=== PATIENT | female | born 1990 | race Two or more races ===

== ENCOUNTER 2024-06-02 18:22 | Emergency (ER) | payer OTHER ==
[2024-06-02 18:32] VITALS: TEMP 99.2; BMI 25.8
[2024-06-02] MEDS ORDERED: KETOROLAC TROMETHAMINE 30 MG/1 ML VIAL ONE (19:33)
[2024-06-02] MEDS ORDERED: DEXAMETHASONE SOD PHOSPHATE 10 MG/1 ML VIAL ONE (19:33)
[2024-06-02 19:36] LABS: HEMATOCRIT 42.3 % (32.4-45.2); MCH 27.6 pg (25.7-33.7); MCHC 33.1 g/dl (32.0-36.0); MEAN CELL VOLUME 83.3 fl (80-96); MEAN PLT VOLUME 8.6 fl (7.5-11.1); PLATELET COUNT 246 10^3/uL (134-434); RBC 5.08 M/mm3 (3.60-5.2); RDW 14.4 % (11.6-15.6); WHITE BLOOD COUNT 20.6 K/mm3 (4.0-10.0)
[2024-06-02] MEDS: DEXAMETHASONE SOD PHOSPHATE 10 MG/1 ML VIAL IVPUSH ONE (19:40)
[2024-06-02] MEDS: SODIUM CHLORIDE 0.9% 500 ML INFUS.BAG IV ONE (19:53)
[2024-06-02] MEDS: KETOROLAC TROMETHAMINE 30 MG/1 ML VIAL IVPUSH ONE (19:53)
[2024-06-02 20:09] LABS: POTASSIUM 3.9 mmol/L (3.5-5.1)
[2024-06-02 20:12] LABS: CALCIUM 9.3 mg/dL (8.5-10.1)
[2024-06-02 20:13] LABS: ALBUMIN 3.6 g/dl (3.4-5.0); BLOOD UREA NITROGEN 8.3 mg/dL (7-18)
[2024-06-02 20:17] LABS: BILIRUBIN,TOTAL 0.7 mg/dL (0.2-1); TOT PROT 7.8 g/dl (6.4-8.2)
[2024-06-02] MEDS ORDERED: AMPICILLIN NA/SULBACTAM NA 3 GM/100 ML BAG IVPB ONE (21:36)
[2024-06-02] MEDS: AMPICILLIN NA/SULBACTAM NA 3 GM in SODIUM CHLORIDE 100 ML IVPB ONE (21:44)
[2024-06-02 22:54] VITALS: BP 125/68; PULSE 72; RESP 16
== END 2024-06-02 22:54 | disposition home or self-care (01) ==
LOC: JERFT 18:22
PROC: 3E03329 Introduction of Other Anti-infective into Peripheral Vein, Percutaneous Approach (ICD-10-PCS; principal; 2024-06-02)
PROC: 3E033GC Introduction of Other Therapeutic Substance into Peripheral Vein, Percutaneous Approach (ICD-10-PCS; 2024-06-02)
PROC: 3E0333Z Introduction of Anti-inflammatory into Peripheral Vein, Percutaneous Approach (ICD-10-PCS; 2024-06-02)
DX: J02.9 Acute pharyngitis, unspecified (principal); J36 Peritonsillar abscess; M54.2 Cervicalgia; R50.9 Fever, unspecified
CPT/HCPCS: 36415; 70491-TC; 80053; 84703; 85025; 87651; 96365; 96375; 99285-25; J1100; Q9967